=== PATIENT | male | born 1980 | race African-American/Black ===

== ENCOUNTER 2020-08-22 07:42 | Emergency (ER) | payer BC ==
[~2020-08-22] VITALS: Ht 172.7 cm; Wt 115.7 kg
[2020-08-22 08:07] LABS: ABSOLUTE NEUTROPHILS 1.9 thou/uL (1.4-8.2); BASOPHILS 0.5 % (0.0-2.0); EOSINOPHILS 1.8 % (0.0-3.0); HEMATOCRIT 40.9 % (42.0-52.0); HEMOGLOBIN 13.4 gm/dL (14.0-18.0); MCH 26.1 pg (26.0-34.0); MCHC 32.7 g/dL (28.0-37.0); MCV 79.8 fL (80.0-100.0); PLATELET COUNT 172 thou/uL (150-400); POLYS 35.7 % (36.0-66.0); RBC 5.13 mil/uL (4.50-6.00); RDW 15.3 % (10.5-14.5); WBC 5.4 thou/uL (4.0-11.0)
[2020-08-22 08:17] LABS: CALCIUM 8.7 mg/dL (8.5-10.1); POTASSIUM 3.6 mmol/L (3.5-5.1)
[2020-08-22 08:23] LABS: ALBUMIN 3.8 g/dL (3.4-5.0); TOTAL BILIRUBIN 0.4 mg/dL (0.2-1.0); TOTAL PROTEIN 7.6 g/dL (6.4-8.2)
[2020-08-22 08:26] LABS: LIPASE 73 U/L (73-393); MAGNESIUM 1.9 mg/dL (1.8-2.4); TROPONIN-I <0.06 ng/mL (<0.06)
[2020-08-22 08:30] LABS: URINE BILIRUBIN NEGATIVE (Negative); URINE BLOOD NEGATIVE (Negative); URINE CLARITY CLEAR; URINE COLOR YELLOW; URINE GLUCOSE-RANDOM* NEGATIVE (Negative); URINE KETONES NEGATIVE (Negative); URINE LEUKOCYTES-REFLEX NEGATIVE (Negative); URINE NITRITE-REFLEX NEGATIVE (Negative); URINE PROTEIN (DIPSTICK) NEGATIVE (Negative); URINE SPECIFIC GRAVITY 1.025 (1.005-1.035)
[2020-08-22 09:00] VITALS: BP 103/54
--- NOTE | 2020-08-22 09:41 | EKG ---
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 08/22/20 0941 3 Brennan Em MD, FACC /EPI
== END 2020-08-22 09:52 | disposition home or self-care (01) ==
LOC: ER 07:42
PROVIDERS: Emergency Medicine
DX: R53.83 Other fatigue (principal); E11.9 Type 2 diabetes mellitus without complications